=== PATIENT | male | born 1965 | race African-American/Black ===

== ENCOUNTER 2018-02-07 16:34 | Emergency (ER) | payer MEDICAID ==
[~2018-02-07] VITALS: Ht 177.8 cm; Wt 72.6 kg
[~2018-02-07 16:34] MED LIST: PHEN100C70
[2018-02-07 16:43] VITALS: BP 131/80
[2018-02-07] MEDS: LORazepam 2MG/ML-1ML VIAL IV ONE ×2 (17:18→17:30)
[2018-02-07 17:48] LABS: Urine Bacteria NONE SEEN /hpf (None Seen); Urine Blood Negative /uL (Negative); Urine Mucus FEW (None Seen); Urine Specific Gravity 1.004 (1.001-1.035); Urine WBC <1 /hpf (0 - 3)
== END 2018-02-07 17:24 | disposition left against medical advice (07) ==
LOC: EDBD 16:34 → ER 16:38
DX: G40.909 Epilepsy, unspecified, not intractable, without status epilepticus (principal); F17.210 Nicotine dependence, cigarettes, uncomplicated; F12.10 Cannabis abuse, uncomplicated; F10.10 Alcohol abuse, uncomplicated; I25.2 Old myocardial infarction; I25.10 Atherosclerotic heart disease of native coronary artery without angina pectoris; Z90.49 Acquired absence of other specified parts of digestive tract
CPT/HCPCS: 81001; 93005; 94761; 96374; 99285; J2060; J7030

== ENCOUNTER 2021-01-03 23:44 | Inpatient (IN) | payer MEDICAID ==
[~2021-01-03] VITALS: Ht 180.3 cm; Wt 77.1 kg
[~2021-01-03 23:44] MED LIST changes: +PHEN100C; -PHEN100C70
[2021-01-04 01:03] LABS: Basophils # (auto) 0 10 ^3/uL (0-0.2); Basophils % (auto) 0.7 % (0.0-2.0); Eosinophils # (auto) 0.2 10 ^3/uL (0-0.8); Eosinophils % (auto) 4.6 % (0.0-7.0); Hematocrit 43.6 % (41.0-53.0); Hemoglobin 15.1 g/dL (13.5-17.5); Lymphocytes # (auto) 1.8 10 ^3/uL (0.4-5.4); Lymphocytes % (auto) 40.5 % (10.0-50.0); Mean Corpuscular Hemoglobin 32.3 pg (28.0-32.0); Mean Corpuscular Hgb Conc. 34.7 g/dL (32.0-36.0); Monocytes # (auto) 0.6 10 ^3/uL (0-1.3); Monocytes % (auto) 13.3 % (0.0-12.0); Neutrophils # (auto) 1.8 10 ^3/uL (1.6-8.6); Neutrophils % (auto) 40.9 % (37.0-80.0); Nucleated Red Blood Cells % 0.1 %; Red Blood Cells 4.69 10^6/uL (4.5-5.90); White Blood Cell 4.4 10^3/uL (4.4-10.8)
[2021-01-04 01:17] LABS: INR 0.97 (0.9-1.15)
[2021-01-04 01:22] LABS: Albumin 3.5 g/dL (3.4-5.0); BUN/Creatinine Ratio 7.6; Calcium 8.2 mg/dL (8.5-10.1); Magnesium 2.4 mg/dL (1.6-2.6); Potassium 3.4 mmol/L (3.5-5.1)
[2021-01-04 01:25] LABS: Lactic Acid w/Reflex 2.3 mmol/L (0.4-2.0)
[2021-01-04 01:27] LABS: Bilirubin, Total 0.4 mg/dL (0.2-1.0); Total Protein 7.2 g/dL (6.4-8.2)
[2021-01-04] MEDS ORDERED: LACTATED RINGER'S 1,000 ML IV ONE (02:30)
[2021-01-04] MEDS ORDERED: cefTRIAXone 1GM/50ML D5W 50 ML IV ONE (04:15)
[2021-01-04] MEDS ORDERED: AZITHROMYCIN 500MG/ 250ML 250 ML IV ONE (04:15)
[2021-01-04 04:58] LABS: Urine WBC None Seen /hpf (0 - 3)
[2021-01-04 05:09] LABS: Urine Bacteria NONE SEEN /hpf (None Seen); Urine Blood Negative /uL (Negative); Urine Mucus FEW (None Seen); Urine Specific Gravity 1.005 (1.001-1.035)
[2021-01-04] MEDS ORDERED: MORPHINE SULFATE INJECTION 2 MG/ML SYRG IV PRN ×2 (06:30)
[2021-01-04] MEDS ORDERED: NITROGLYCERIN 0.4 MG SL TAB SL PRN (06:30)
[2021-01-04] MEDS ORDERED: ONDANSETRON HCL 4 MG/2 ML VIAL IV PRN (06:30)
[2021-01-04] MEDS ORDERED: ALBUTEROL SULF HFA 90MCG INH 200DOSE IN PRN (06:30)
[2021-01-04] MEDS ORDERED: SODIUM CHLORIDE 0.9% 1,000 ML IV SCH (06:30)
[2021-01-04 08:21] LABS: Calcium 7.6 mg/dL (8.5-10.1); Potassium 4.8 mmol/L (3.5-5.1)
[2021-01-04 08:21] LABS: Basophils # (auto) 0 10 ^3/uL (0-0.2); Basophils % (auto) 0.7 % (0.0-2.0); Eosinophils # (auto) 0.1 10 ^3/uL (0-0.8); Hematocrit 43.8 % (41.0-53.0); Hemoglobin 14.8 g/dL (13.5-17.5); Lymphocytes % (auto) 20.9 % (10.0-50.0); Mean Corpuscular Hemoglobin 31.4 pg (28.0-32.0); Mean Corpuscular Hgb Conc. 33.7 g/dL (32.0-36.0); Mean Corpuscular Volume 93.1 fL (80.0-100.0); Monocytes # (auto) 0.7 10 ^3/uL (0-1.3); Monocytes % (auto) 13.4 % (0.0-12.0); Neutrophils # (auto) 3.1 10 ^3/uL (1.6-8.6); Nucleated Red Blood Cells % 0.1 %; Red Blood Cells 4.71 10^6/uL (4.5-5.90); Red Cell Distribution Width 14.3 % (11.8-14.3); White Blood Cell 4.9 10^3/uL (4.4-10.8)
[2021-01-04] MEDS ORDERED: ENOXAPARIN SOD 40 MG/0.4 ML SYRINGE SC SCH (10:00)
[2021-01-04] MEDS ORDERED: PHENYTOIN SODIUM 100 MG CAP PO SCH (10:00)
[2021-01-04 12:13] VITALS: BP 128/89
[2021-01-04] MEDS ORDERED: AZIT500T66 PO (14:06)
[2021-01-04] MEDS ORDERED: PRED20TA2 PO (14:06)
[2021-01-04] MEDS ORDERED: predniSONE 20 MG TAB PO SCH (14:18)
[2021-01-05] MEDS ORDERED: cefTRIAXone 1GM/50ML D5W 50 ML IV SCH (10:00)
[2021-01-05] MEDS ORDERED: AZITHROMYCIN 500MG/ 250ML 250 ML IV SCH (10:00)
== END 2021-01-04 14:04 | disposition left against medical advice (07) | DRG 140 ==
LOC: EDBD 23:44 → ER 23:46 → TELE 01-04 06:25
PROVIDERS: ADMIT Hospitalist; ATTEND Hospitalist
DX: J44.1 Chronic obstructive pulmonary disease with (acute) exacerbation (principal); E87.2 Acidosis; J44.0 Chronic obstructive pulmonary disease with (acute) lower respiratory infection; F17.210 Nicotine dependence, cigarettes, uncomplicated; Z20.822 Contact with and (suspected) exposure to COVID-19; I25.10 Atherosclerotic heart disease of native coronary artery without angina pectoris; R09.02 Hypoxemia; I25.2 Old myocardial infarction; M54.9 Dorsalgia, unspecified; J20.9 Acute bronchitis, unspecified; G40.909 Epilepsy, unspecified, not intractable, without status epilepticus; G89.4 Chronic pain syndrome; R00.1 Bradycardia, unspecified; Z53.29 Procedure and treatment not carried out because of patient's decision for other reasons; I10 Essential (primary) hypertension; J98.11 Atelectasis; Z90.49 Acquired absence of other specified parts of digestive tract; Z87.820 Personal history of traumatic brain injury; Z71.6 Tobacco abuse counseling; Z79.899 Other long term (current) drug therapy
CPT/HCPCS: 36415; 36600; 71045; 80048; 80053; 81001; 82728; 82805; 83605; 83615; 83735; 83880; 84443; 84484; 85025; 85049; 85379; 85610; 87040; 87426; 93005; 96361; 96365; 96368; G0378; J0696; J2405

== ENCOUNTER 2022-04-02 09:00 | Inpatient (IN) | payer MEDICAID ==
[~2022-04-02] VITALS: Ht 175.3 cm; Wt 62.5 kg
[~2022-04-02 09:00] MED LIST changes: +AZIT500T66 PO; +PRED20TA2 PO
[2022-04-02 09:27] LABS: Basophils # (auto) 0 10 ^3/uL (0-0.2); Basophils % (auto) 0.5 % (0.0-2.0); Eosinophils # (auto) 0.1 10 ^3/uL (0-0.8); Eosinophils % (auto) 2.7 % (0.0-7.0); Hematocrit 46.7 % (41.0-53.0); Hemoglobin 15.7 g/dL (13.5-17.5); Lymphocytes # (auto) 1.5 10 ^3/uL (0.4-5.4); Mean Corpuscular Hemoglobin 30.5 pg (28.0-32.0); Mean Corpuscular Hgb Conc. 33.6 g/dL (32.0-36.0); Mean Corpuscular Volume 90.9 fL (80.0-100.0); Monocytes # (auto) 0.6 10 ^3/uL (0-1.3); Neutrophils # (auto) 1.9 10 ^3/uL (1.6-8.6); Neutrophils % (auto) 46.8 % (37.0-80.0); Nucleated Red Blood Cells % 0.1 %; Red Blood Cells 5.14 10^6/uL (4.5-5.90); White Blood Cell 4.1 10^3/uL (4.4-10.8)
[2022-04-02] MEDS ORDERED: MORPHINE SULFATE 4 MG/ML SYR/VIAL IV ONE (09:45)
[2022-04-02] MEDS ORDERED: NITROGLYCERIN 0.4 MG SL TAB SL ONE (09:45)
[2022-04-02] MEDS ORDERED: ONDANSETRON HCL 4 MG/2 ML VIAL IV ONE (09:45)
[2022-04-02] MEDS ORDERED: ASPirin 325 MG TAB PO ONE (09:45)
[2022-04-02 10:14] LABS: Potassium 4.1 mmol/L (3.5-5.1)
[2022-04-02 10:23] LABS: Albumin 4.4 g/dL (3.4-5.0); Bilirubin, Total 2.1 mg/dL (0.2-1.0); Calcium 9.1 mg/dL (8.5-10.1); Magnesium 2.1 mg/dL (1.6-2.6); Total Protein 7.8 g/dL (6.4-8.2)
[2022-04-02 11:25] LABS: Urine Bacteria NONE SEEN /hpf (None Seen); Urine Blood Negative /uL (Negative); Urine Mucus FEW (None Seen); Urine Specific Gravity 1.025 (1.001-1.035); Urine WBC 2 /hpf (0 - 3)
[2022-04-02 11:50] LABS: Amphetamine Screen, Urine POSITIVE (NEGATIVE); Barbiturate Scree,Urine NEGATIVE (NEGATIVE); Benzodiazephine Screen, Urine NEGATIVE (NEGATIVE); Cannabinoid Screen, Urine POSITIVE (NEGATIVE); Cocaine Screen, Urine NEGATIVE (NEGATIVE); Opiate Scree,Urine NEGATIVE (NEGATIVE); Phencyclidine Screen, Urine NEGATIVE (NEGATIVE)
[2022-04-02] MEDS ORDERED: MORPHINE SULFATE INJ 2 MG/ml SYRG IV PRN (14:00)
[2022-04-02] MEDS ORDERED: ONDANSETRON HCL 4 MG/2 ML VIAL IV PRN (14:00)
[2022-04-02] MEDS ORDERED: NITROGLYCERIN 0.4 MG SL TAB SL PRN (14:00)
[2022-04-02] MEDS ORDERED: LORazepam 2MG/ML-1ML VIAL IV PRN ×2 (14:15)
[2022-04-02 14:35] LABS: Cholesterol 151 mg/dL (< 200); HDL Cholesterol 75 mg/dL (40-59); LDL Cholesterol 78 mg/dL (< 100); Triglycerides 66 mg/dL (< 150)
[2022-04-02] MEDS: ATORVASTATIN 20 MG TAB PO SCH (21:18)
[2022-04-02 22:00] VITALS: BP 125/80
[2022-04-02 22:41] VITALS: BP 125/80
[2022-04-03 05:00] VITALS: BP 123/71
[2022-04-03 05:06] LABS: Basophils # (auto) 0 10 ^3/uL (0-0.2); Basophils % (auto) 0.6 % (0.0-2.0); Eosinophils # (auto) 0.3 10 ^3/uL (0-0.8); Eosinophils % (auto) 4.4 % (0.0-7.0); Hematocrit 45.4 % (41.0-53.0); Hemoglobin 15.1 g/dL (13.5-17.5); Lymphocytes # (auto) 1.5 10 ^3/uL (0.4-5.4); Lymphocytes % (auto) 26.2 % (10.0-50.0); Mean Corpuscular Hemoglobin 30.3 pg (28.0-32.0); Mean Corpuscular Hgb Conc. 33.1 g/dL (32.0-36.0); Mean Corpuscular Volume 91.3 fL (80.0-100.0); Monocytes % (auto) 17.2 % (0.0-12.0); Neutrophils % (auto) 51.6 % (37.0-80.0); Nucleated Red Blood Cells % 0.3 %; Red Blood Cells 4.98 10^6/uL (4.5-5.90); Red Cell Distribution Width 13.8 % (11.8-14.3); White Blood Cell 5.8 10^3/uL (4.4-10.8)
[2022-04-03 05:32] LABS: Potassium 3.9 mmol/L (3.5-5.1)
[2022-04-03 05:40] LABS: Albumin 3.7 g/dL (3.4-5.0); BUN/Creatinine Ratio 11.4; Bilirubin, Total 1.8 mg/dL (0.2-1.0); Calcium 8.7 mg/dL (8.5-10.1); Total Protein 6.7 g/dL (6.4-8.2)
[2022-04-03] MEDS ORDERED: ADENOSINE 51 MG in GIVE UN-DILUTED 0 ML IV ONE (09:00)
[2022-04-03] MEDS: NICOTINE 7MG/24HR TOPICAL PATCH TD SCH (10:00)
[2022-04-03 10:08] VITALS: BP 143/84
[2022-04-03 12:00] VITALS: BP 150/85
[2022-04-03] MEDS: THIAMINE 100mg/ml INJ (200mg/2ml VIAL) IV SCH (12:34)
[2022-04-03] MEDS: PHENYTOIN SODIUM 100 MG CAP PO SCH (12:35)
[2022-04-03] MEDS: ENOXAPARIN SOD 40 MG/0.4 ML SYRINGE SC SCH (12:35)
[2022-04-03 15:55] LABS: INR 1.05 (0.9-1.15)
[2022-04-03 16:00] VITALS: BP 134/88
[2022-04-03 22:00] VITALS: BP 126/86
[2022-04-04] VITALS (7 sets, daily range): BP systolic 119–137; BP diastolic 55–91
[2022-04-04] MEDS: ATORVASTATIN 20 MG TAB PO SCH ×2 (00:30→21:31)
[2022-04-04] MEDS: MORPHINE SULFATE INJ 2 MG/ml SYRG IV PRN ×3 (04:33→20:21)
[2022-04-04] MEDS: NICOTINE 7MG/24HR TOPICAL PATCH TD SCH (10:00)
[2022-04-04] MEDS: ENOXAPARIN SOD 40 MG/0.4 ML SYRINGE SC SCH (10:00)
[2022-04-04] MEDS: THIAMINE 100mg/ml INJ (200mg/2ml VIAL) IV SCH (10:06)
[2022-04-04] MEDS: ASPirin 81 mg TAB PO SCH (10:06)
[2022-04-04] MEDS: PHENYTOIN SODIUM 100 MG CAP PO SCH (10:07)
[2022-04-04 12:25] LABS: Albumin 3.8 g/dL (3.4-5.0); Calcium 9.1 mg/dL (8.5-10.1); Potassium 3.6 mmol/L (3.5-5.1)
[2022-04-04 12:30] LABS: BUN/Creatinine Ratio 11.1; Bilirubin, Total 1.3 mg/dL (0.2-1.0); Total Protein 7.3 g/dL (6.4-8.2)
[2022-04-04] MEDS ORDERED: IODIXANOL 320MG/ML 100ML BTL IV ONE (14:46)
[2022-04-04] MEDS ORDERED: HEPARIN IN NS 1000Units/500mL 1,500 ML ONE (14:46)
[2022-04-04] MEDS ORDERED: LIDOCAINE 2%HCL (LOCAL ANESTH.) INJ 20ML MDV ONE (14:46)
[2022-04-04] MEDS ORDERED: VERAPAMIL 2.5MG/ML INJ 2ML VIAL IV ONE (15:09)
[2022-04-04] MEDS ORDERED: HEPARIN SODIUM (PORCINE) 5000 UNITS/ML 1ML VIAL ONE (15:09)
[2022-04-04] MEDS ORDERED: ANGIOMAX 250 MG VIAL IV ONE (15:09)
[2022-04-04] MEDS ORDERED: fentaNYL CITRATE 100 MCG/2 ML VL ONE (15:10)
[2022-04-04] MEDS ORDERED: SODIUM CHL 0.9% 0 ML ONE (15:10)
[2022-04-04] MEDS ORDERED: MIDAZOLAM HCL 2MG/2ML 2ml VIAL (1mg/ml) ONE (15:10)
[2022-04-04] MEDS: OXYCODONE W/ ACETAMINOPHEN 5/325MG TABLET PO PRN (17:45)
[2022-04-05 05:00] VITALS: BP 109/64
[2022-04-05 06:51] LABS: Potassium 3.7 mmol/L (3.5-5.1)
[2022-04-05 06:56] LABS: Albumin 3.8 g/dL (3.4-5.0); BUN/Creatinine Ratio 9.6
[2022-04-05 06:58] LABS: Bilirubin, Total 1.1 mg/dL (0.2-1.0); Total Protein 6.7 g/dL (6.4-8.2)
[2022-04-05 08:58] VITALS: BP 143/74
[2022-04-05] MEDS: ASPirin 81 mg TAB PO SCH (09:19)
[2022-04-05] MEDS: PHENYTOIN SODIUM 100 MG CAP PO SCH (09:20)
[2022-04-05] MEDS: ENOXAPARIN SOD 40 MG/0.4 ML SYRINGE SC SCH (09:21)
[2022-04-05] MEDS: THIAMINE 100mg/ml INJ (200mg/2ml VIAL) IV SCH (09:23)
[2022-04-05] MEDS: MORPHINE SULFATE INJ 2 MG/ml SYRG IV PRN (09:23)
[2022-04-05] MEDS: NICOTINE 7MG/24HR TOPICAL PATCH TD SCH (09:23)
[2022-04-05 11:09] LABS: Hepatitis A Ab IgM Negative
[2022-04-05 11:11] LABS: Hepatitis C Antibody Negative (Negative)
[2022-04-05] MEDS: OXYCODONE W/ ACETAMINOPHEN 5/325MG TABLET PO PRN (11:15)
[2022-04-05 12:39] VITALS: BP 151/88
[2022-04-05 13:41] LABS: Hepatitis B Core IgM Negative
== END 2022-04-05 14:43 | disposition home or self-care (01) | DRG 191 ==
LOC: ER 09:00 → TELE 14:10 → TELE-WESTW 21:10
PROVIDERS: ADMIT Registered Nurse; ATTEND Internal Medicine
PROC: 4A023N7 Measurement of Cardiac Sampling and Pressure, Left Heart, Percutaneous Approach (ICD-10-PCS; principal; 2022-04-04)
PROC: B2111ZZ Fluoroscopy of Multiple Coronary Arteries using Low Osmolar Contrast (ICD-10-PCS; 2022-04-04)
DX: I25.119 Atherosclerotic heart disease of native coronary artery with unspecified angina pectoris (principal); E78.5 Hyperlipidemia, unspecified; G40.909 Epilepsy, unspecified, not intractable, without status epilepticus; F17.210 Nicotine dependence, cigarettes, uncomplicated; F15.10 Other stimulant abuse, uncomplicated; R74.01 Elevation of levels of liver transaminase levels; G89.29 Other chronic pain; I25.2 Old myocardial infarction; Z90.49 Acquired absence of other specified parts of digestive tract; Z79.899 Other long term (current) drug therapy
CPT/HCPCS: 36415; 71045; 78452; 80053; 80061; 80074; 80185; 80307; 81001; 83735; 84484; 85025; 85610; 86850; 86900; 86901; 93005; 93017; 93306; 93458; 96374; 96375; 99152; G0378; J0153; J2250; J2405; Q9967

== ENCOUNTER 2022-10-29 18:26 | Emergency (ER) | payer MEDICAID ==
[~2022-10-29] VITALS: Ht 172.7 cm; Wt 68.0 kg
[2022-10-29] MEDS ORDERED: SODIUM CHLORIDE 0.9% 1,000 ML IV ONE (18:45)
[2022-10-29 18:52] LABS: Basophils # (auto) 0.1 10 ^3/uL (0-0.2); Basophils % (auto) 1.4 % (0.0-2.0); Eosinophils # (auto) 0.1 10 ^3/uL (0-0.8); Eosinophils % (auto) 2.1 % (0.0-7.0); Hematocrit 40.5 % (41.0-53.0); Hemoglobin 13.6 g/dL (13.5-17.5); Lymphocytes # (auto) 1.8 10 ^3/uL (0.4-5.4); Lymphocytes % (auto) 35.7 % (10.0-50.0); Mean Corpuscular Hemoglobin 31.2 pg (28.0-32.0); Mean Corpuscular Hgb Conc. 33.7 g/dL (32.0-36.0); Mean Corpuscular Volume 92.6 fL (80.0-100.0); Monocytes # (auto) 0.6 10 ^3/uL (0-1.3); Monocytes % (auto) 11.2 % (0.0-12.0); Neutrophils # (auto) 2.5 10 ^3/uL (1.6-8.6); Neutrophils % (auto) 49.6 % (37.0-80.0); Nucleated Red Blood Cells % 0.3 %; Red Blood Cells 4.38 10^6/uL (4.5-5.90); Red Cell Distribution Width 15.1 % (11.8-14.3); White Blood Cell 5.1 10^3/uL (4.4-10.8)
[2022-10-29 19:11] LABS: BUN/Creatinine Ratio 9.8 (10.0-20.0); Calcium 9.2 mg/dL (8.5-10.1); Potassium 3.5 mmol/L (3.5-5.1)
[2022-10-29 19:22] LABS: Bilirubin, Total 1.2 mg/dL (0.2-1.0); Total Protein 7.3 g/dL (6.4-8.2)
[2022-10-29 19:39] LABS: INR 0.98 (0.9-1.15); Partial Thromboplastin Time 27.6 sec (24.6-33.4)
[2022-10-29 22:55] VITALS: BP 139/93
[2022-10-30] MEDS ORDERED: OXYC325T14 PO (22:44)
[2022-10-30] MEDS ORDERED: MORP15TA PO (22:44)
== END 2022-10-29 22:55 | disposition home or self-care (01) ==
LOC: ER 18:26 → EDBD 18:26 → ER 22:55
DX: R07.89 Other chest pain (principal); F10.10 Alcohol abuse, uncomplicated; F17.210 Nicotine dependence, cigarettes, uncomplicated; F12.10 Cannabis abuse, uncomplicated; F15.10 Other stimulant abuse, uncomplicated; I10 Essential (primary) hypertension; I25.2 Old myocardial infarction; Z90.49 Acquired absence of other specified parts of digestive tract; Z86.79 Personal history of other diseases of the circulatory system
CPT/HCPCS: 36415; 71046; 80053; 80320; 83880; 84484; 85025; 85379; 85610; 85730; 93005

== ENCOUNTER 2022-10-30 09:02 | Inpatient (IN) | payer MEDICAID ==
[2022-10-29 22:13] VITALS: BP 129/89
[~2022-10-30] VITALS: Ht 172.7 cm; Wt 62.0 kg
[2022-10-30 09:27] LABS: Basophils # (auto) 0.1 10 ^3/uL (0-0.2); Eosinophils # (auto) 0.1 10 ^3/uL (0-0.8); Eosinophils % (auto) 3.5 % (0.0-7.0); Hematocrit 43.4 % (41.0-53.0); Hemoglobin 14.6 g/dL (13.5-17.5); Lymphocytes # (auto) 1.2 10 ^3/uL (0.4-5.4); Lymphocytes % (auto) 31.2 % (10.0-50.0); Mean Corpuscular Hemoglobin 31.1 pg (28.0-32.0); Mean Corpuscular Hgb Conc. 33.6 g/dL (32.0-36.0); Mean Corpuscular Volume 92.3 fL (80.0-100.0); Monocytes # (auto) 0.5 10 ^3/uL (0-1.3); Monocytes % (auto) 14.2 % (0.0-12.0); Neutrophils # (auto) 1.8 10 ^3/uL (1.6-8.6); Neutrophils % (auto) 49.1 % (37.0-80.0); Nucleated Red Blood Cells % 0.1 %; Red Cell Distribution Width 14.9 % (11.8-14.3); White Blood Cell 3.8 10^3/uL (4.4-10.8)
[2022-10-30] MEDS ORDERED: HYDROcodone-ACET 5/325MG TAB PO ONE (10:45)
[2022-10-30 10:59] LABS: Potassium 3.6 mmol/L (3.5-5.1)
[2022-10-30] MEDS ORDERED: ASPirin 81 mg TAB PO ONE (11:15)
[2022-10-30 11:34] LABS: Albumin 4.2 g/dL (3.4-5.0); BUN/Creatinine Ratio 11.4 (10.0-20.0); Calcium 9.7 mg/dL (8.5-10.1); Magnesium 2.3 mg/dL (1.6-2.6)
[2022-10-30 11:36] LABS: Bilirubin, Total 2.1 mg/dL (0.2-1.0); Total Protein 7.4 g/dL (6.4-8.2)
[2022-10-30] MEDS ORDERED: ACETAMINOPHEN 325 MG TAB PO PRN (12:15)
[2022-10-30] MEDS ORDERED: MORPHINE SULFATE INJ 2 MG/ml SYRG IV PRN ×2 (12:15)
[2022-10-30] MEDS ORDERED: NTG 0.1MG/HR TOPICAL PATCH TD ONE (12:15)
[2022-10-30] MEDS ORDERED: HYDROcodone-ACET 5/325MG TAB PO PRN (12:15)
[2022-10-30] MEDS ORDERED: NITROGLYCERIN 0.4 MG SL TAB SL PRN (12:15)
[2022-10-30] MEDS ORDERED: ENOXAPARIN SOD 100 MG/1 ML SYRINGE SC ONE (12:15)
[2022-10-30 13:06] LABS: Urine Bacteria MOD /hpf (None Seen); Urine Blood Negative /uL (Negative); Urine Hyaline Cast FEW /lpf (0 - 2); Urine Mucus MODERATE (None Seen); Urine Specific Gravity 1.029 (1.001-1.035); Urine Sperm PRESENT /hpf (None Seen); Urine WBC 3 /hpf (0 - 3)
[2022-10-30 13:13] LABS: Blood Alcohol < 3.0 mg/dL (0-5)
[2022-10-30 13:16] LABS: Cholesterol 176 mg/dL (< 200); HDL Cholesterol 76 mg/dL (40-59); LDL Cholesterol 89 mg/dL (< 100); Triglycerides 52 mg/dL (< 150)
[2022-10-30 13:48] LABS: Barbiturate Scree,Urine NEGATIVE (NEGATIVE); Benzodiazephine Screen, Urine NEGATIVE (NEGATIVE); Cannabinoid Screen, Urine POSITIVE (NEGATIVE); Cocaine Screen, Urine POSITIVE (NEGATIVE); Phencyclidine Screen, Urine NEGATIVE (NEGATIVE)
[2022-10-30 14:01] LABS: Opiate Scree,Urine NEGATIVE (NEGATIVE)
[2022-10-30 15:00] LABS: Amphetamine Screen, Urine POSITIVE (NEGATIVE)
[2022-10-30] MEDS ORDERED: diphenhdrAMINE HCL 50 MG/1 ML VL IV ONE (18:45)
[2022-10-30 21:33] VITALS: BP 129/89
[2022-10-30] MEDS ORDERED: PHENYTOIN SODIUM 100 MG CAP PO SCH (22:00)
[2022-10-30] MEDS ORDERED: ATORVASTATIN 20 MG TAB PO SCH (22:00)
[2022-10-30 22:13] VITALS: BP 129/89
[2022-10-30] MEDS ORDERED: OXYC325T14 PO (22:44)
[2022-10-30] MEDS ORDERED: MORP15TA PO (22:44)
[2022-10-31 05:00] VITALS: BP 107/64
[2022-10-31 06:35] LABS: Basophils # (auto) 0 10 ^3/uL (0-0.2); Basophils % (auto) 0.4 % (0.0-2.0); Eosinophils # (auto) 0.3 10 ^3/uL (0-0.8); Hematocrit 41.4 % (41.0-53.0); Hemoglobin 13.9 g/dL (13.5-17.5); Lymphocytes # (auto) 1.7 10 ^3/uL (0.4-5.4); Lymphocytes % (auto) 38.9 % (10.0-50.0); Mean Corpuscular Hemoglobin 31.8 pg (28.0-32.0); Mean Corpuscular Hgb Conc. 33.6 g/dL (32.0-36.0); Mean Corpuscular Volume 94.6 fL (80.0-100.0); Monocytes # (auto) 0.7 10 ^3/uL (0-1.3); Monocytes % (auto) 16.7 % (0.0-12.0); Neutrophils # (auto) 1.6 10 ^3/uL (1.6-8.6); Nucleated Red Blood Cells % 0.2 %; Red Blood Cells 4.38 10^6/uL (4.5-5.90); White Blood Cell 4.2 10^3/uL (4.4-10.8)
[2022-10-31 06:47] LABS: Calcium 8.9 mg/dL (8.5-10.1); Potassium 3.3 mmol/L (3.5-5.1)
[2022-10-31 06:52] LABS: Albumin 3.6 g/dL (3.4-5.0); BUN/Creatinine Ratio 14.5 (10.0-20.0); Bilirubin, Total 1.9 mg/dL (0.2-1.0); Total Protein 6.8 g/dL (6.4-8.2)
[2022-10-31 08:00] VITALS: BP 128/80
[2022-10-31 09:00] VITALS: BP 122/68
[2022-10-31] MEDS ORDERED: ENOXAPARIN SOD 40 MG/0.4 ML SYRINGE SC SCH (10:00)
[2022-10-31] MEDS ORDERED: ASPirin 81 mg TAB PO SCH (10:00)
[2022-10-31 13:00] VITALS: BP 128/80
[2022-10-31 14:56] VITALS: BP 128/80
== END 2022-10-31 15:47 | disposition home or self-care (01) | DRG 198 ==
LOC: ER 09:02 → TELE 12:12 → TELE-WESTW 20:40
PROVIDERS: ADMIT Registered Nurse; ATTEND Internal Medicine Pulmonary Disease
DX: I25.110 Atherosclerotic heart disease of native coronary artery with unstable angina pectoris (principal); E78.5 Hyperlipidemia, unspecified; I10 Essential (primary) hypertension; F17.210 Nicotine dependence, cigarettes, uncomplicated; G89.4 Chronic pain syndrome; Z90.49 Acquired absence of other specified parts of digestive tract
CPT/HCPCS: 36415; 71046; 80053; 80061; 80307; 80320; 81001; 83735; 83880; 84443; 84484; 85025; 93005; 93306; G0378

== ENCOUNTER 2023-01-15 22:01 | Emergency (ER) | payer MEDICAID ==
[~2023-01-15] VITALS: Ht 177.8 cm; Wt 70.5 kg
[~2023-01-15 22:01] MED LIST changes: +MORP15TA PO; +OXYC325T14 PO
[2023-01-16] MEDS ORDERED: PERCOT PO (02:04)
[2023-01-16 02:16] VITALS: BP 144/75
== END 2023-01-16 04:06 | disposition home or self-care (01) ==
LOC: EDBD 22:01 → ER 22:01
DX: S16.1XXA Strain of muscle, fascia and tendon at neck level, initial encounter (principal); V43.62XA Car passenger injured in collision with other type car in traffic accident, initial encounter; Y93.89 Activity, other specified; Y92.89 Other specified places as the place of occurrence of the external cause; Y99.8 Other external cause status
CPT/HCPCS: 70450; 71250; 72125; 74176; 93005

== ENCOUNTER 2024-03-23 19:29 | Emergency (ER) | payer MEDICAID ==
[~2024-03-23] VITALS: Ht 167.6 cm; Wt 72.6 kg
[~2024-03-23 19:29] MED LIST changes: +PERCOT PO
[2024-03-23 19:40] VITALS: BP 125/77; PULSE 20; RESP 20; O2SAT 98
== END 2024-03-23 21:37 | disposition left against medical advice (07) ==
LOC: EDBD 19:29 → ER 19:29
DX: R07.2 Precordial pain (principal); Z53.21 Procedure and treatment not carried out due to patient leaving prior to being seen by health care provider
CPT/HCPCS: 93005